=== PATIENT | female | born 1980 | race Caucasian/White ===

== ENCOUNTER 2016-12-07 12:02 | Emergency (ER) | payer SELFPAY ==
[~2016-12-07] VITALS: Ht 160 cm; Wt 82.4 kg
[~2016-12-07 12:02] MED LIST: ALBU2.5I INH; METF500 PO; METR500I3 PO; NAPR500 PO
[2016-12-07 12:21] VITALS: BP 131/78; PULSE 98; RESP 16; TEMP 98.1; O2SAT 99
[2016-12-07 12:31] LABS: BLOOD, URINE LARGE (NEG); KETONE, URINE 15 mg/dL (NEG); NITRITE,URINE NEG (NEG); PH, URINE 5.5 (5.0-8.5)
[2016-12-07 12:36] LABS: GLUCOSE,URINE 1000 OR GREATER mg/dL (NEG)
[2016-12-07 12:37] LABS: METHOD OF COLLECTION CLEAN CATCH; URINE COLOR YELLOW (YELLW/STRAW)
[2016-12-07 12:39] LABS: RBC, URINE INNUM /hpf (0-3); SQUAMOUS EPITHELIAL CELL URINE > 8 /hpf (0-5)
[2016-12-07 12:40] LABS: COMMENT (UR) CULTURE INDICATED; CULTURE IF INDICATED CULTURE INDICATED
--- NOTE | 2016-12-07 12:44 | PD ---
HPI Chief Complaint: Complaint Time Seen by Provider: 12:27 Travel History International Travel<30 days: No Contact w/Intl Traveler<30days: No Traveled to known affect area: No History of Present Illness HPI This is a 36 year old female who presents to the emergency department with 2 days of yellow vaginal discharge, constant, moderate severity, with no associated itching or urinary urgency or frequency. she says this feels similar to when she has had a yeast infection in the past. Pt. denies any fevers or chills. She denies any abdominal pain. Pt. is sexually active with one partner. PFSH Past Medical History Narrative Medical t2dm Asthma: Yes Anxiety: Yes Depression: Yes Cancer: No Cardiovascular Problems: No Diabetes: Yes Patient Takes Glucophage: No Diminished Hearing: No Endocrine: No Genitourinary: No Immune Disorder: No Musculoskeletal: Yes (BACK INJURY L4,L5,S1 FROM SLIP AND FALL) Neurologic: Yes Psychiatric: Yes Reproductive: No Respiratory: Yes Integumentary: Yes (HX MRSA, DISHYDROTIC ECZEMA) Immunizations Current: Yes Tetanus Vaccination: < 5 Years Influenza Vaccination: No ?: Not LMP: today : 1 Para: 0 Miscarriage: 1 Past Surgical History Body Medical Devices: HX OF MRSA Oral Surgery: Yes (1992) Social History Alcohol Use: Yes (OCCASIONAL -wine) Tobacco Use: Yes (07/26) Substance Use: Yes (COCAINE, MARIJUANA) Allergies-Medications (Allergen,Severity, Reaction): Coded Allergies: Penicillin (Verified Allergy, Severe, HIVES, 12/07/16) Zofran (Verified Adverse Reaction, Intermediate, nv, 12/07/16) Reported Meds & Prescriptions Reported Meds & Active Scripts Active Metronidazole 500 Mg Tab 500 Mg PO BID 7 Days Naprosyn (Naproxen) 500 Mg Tab 500 Mg PO BID PRN Glucophage 500 mg (Metformin HCl) 500 Mg Tab 500 Mg PO DAILY 30 Days Reported Resp: Albuterol 2.5 Mg/3 Ml Neb (Albuterol Sulfate) 2.5 Mg/3 Ml Nebu 2.5 Mg INH Q6H PRN Review of Systems Except as stated in HPI: all other systems reviewed are Neg Physical Exam Narrative GENERAL:Well appearing, no acute distress SKIN: Focused skin assessment warm and dry. HEAD: Atraumatic. Normocephalic. EYES: Pupils equal and round. No injection or drainage. ENT: Moist mucous membranes NECK: Trachea midline. CARDIOVASCULAR: Regular rate and rhythm. No murmur appreciated. RESPIRATORY: Clear to auscultation. Breath sounds equal bilaterally. GASTROINTESTINAL: Abdomen soft, non-tender, nondistended. MUSCULOSKELETAL: No obvious deformities. NEUROLOGICAL: Awake and alert. No obvious cranial nerve deficits. Moving all extremities. PSYCHIATRIC: Appropriate mood and affect; insight and judgment normal. Data Data Last Documented VS Vital Signs Date Time Temp Pulse Resp B/P Pulse Ox O2 Delivery O2 Flow Rate FiO2 12/07/16 12:21 98.1 98 16 131/78 99 Orders Urinalysis - C+S If Indicated (12/07/16 12:16) Ed Urine Pregnancytest Poc (12/07/16 12:16) Urine Culture (12/07/16 12:25) Wet Prep Profile (12/07/16 12:50) Gc And Chlamydia Pcr (12/07/16 12:50) Labs Laboratory Tests Test 12/07/16 12:25 Urine Collection Type CLEAN CATCH Urine Color YELLOW Urine Turbidity MOD Urine pH 5.5 Urine Specific [place] 1.025 Urine Protein 100 mg/dL Urine Glucose (UA) 1000 OR GREATER mg/dL Urine Ketones 15 mg/dL Urine Occult Blood LARGE Urine Nitrite NEG Urine Bilirubin NEG Urine Leukocyte Esterase SMALL Urine RBC INNUM /hpf Urine WBC 25-49 /hpf Urine Squamous Epithelial > 8 /hpf Cells Urine Trichomonas MOD Microscopic Urinalysis Comment CULTURE INDICATED Urine Collection Time 12:25 [facility] Medical Decision Making Medical Screen Exam Complete: Yes Emergency Medical Condition: Yes Interpretation(s) Afebrile, in mild tachycardia, normotensive Urinalysis: Large amount of red blood cells, Trichomonas is present Differential Diagnosis Cervicitis, urinary tract infection, yeast infection Narrative Course This is a 36-year-old female who presents to the emergency department with yellow vaginal discharge with no associated abdominal pain or fevers. Patient has a history of trichomonas in the past. Urinalysis demonstrates Trichomonas today. I think she is probably passing it back and forth with her partner. She has no signs of PID. She didn't really want a pelvic exam and I don't think it'll change our management. Patient was given empiric treatment for cervicitis and referral to gynecology as an outpatient. Diagnosis Primary Impression: Trichomonas vaginalis (TV) infection Patient Instructions: General Instructions Additional Instructions: If you develop fever, chills, severe abdominal pain, persistent vomiting or inability to eat return to the emergency department. Your pelvic exam today did not include a Pap smear. It is important to followup with a hoist operator on a yearly basis to be tested for cervical cancer as we do not do that from the emergency department. If there is a concern that you have sexually transmitted disease, your partner should be tested. You should followup with your hoist operator or with the health department to get tested for other sexually transmitted diseases like HIV and syphilis, as we do not test for these in the emergency department Med/Other Pt SpecificInfo: No Change to Meds Disposition: 01 DISCHARGE HOME Condition: Stable Hyacinth Pennington MD December 07, 2016 12:44
[2016-12-07] MEDS ORDERED: metroNIDAZOLE 500 MG TAB PO ONE (13:15)
[2016-12-07] MEDS ORDERED: LIDOCAINE HCL 1% 50 ML VIAL IM ONE (13:15)
[2016-12-07] MEDS ORDERED: cefTRIAXone 250 MG VIAL IM ONE (13:15)
[2016-12-07] MEDS ORDERED: AZITHROMYCIN PWD FOR SUSP 1 GM PACKET PO ONE (13:15)
== END 2016-12-07 14:02 | disposition home or self-care (01) ==
LOC: PHED 12:02
DX: A59.01 Trichomonal vulvovaginitis (principal); R00.0 Tachycardia, unspecified; F17.200 Nicotine dependence, unspecified, uncomplicated; J45.909 Unspecified asthma, uncomplicated; F41.9 Anxiety disorder, unspecified; F32.9 Major depressive disorder, single episode, unspecified; E11.9 Type 2 diabetes mellitus without complications; Z79.899 Other long term (current) drug therapy; Z88.0 Allergy status to penicillin
CPT/HCPCS: 81001; 84703; 87086; 96372; 99283; J0696

== ENCOUNTER 2017-01-20 23:21 | Emergency (ER) | payer SELFPAY ==
[~2017-01-20] VITALS: Ht 160 cm; Wt 84.6 kg
[2017-01-20 23:34] VITALS: BP 124/78; PULSE 110; RESP 22; TEMP 98.8; O2SAT 97
[2017-01-20] MEDS ORDERED: ALBU0.08 NEB (23:44)
[2017-01-20 23:45] VITALS: BP 122/76; PULSE 98; RESP 18; TEMP 98.8; O2SAT 97
--- NOTE | 2017-01-21 00:05 | PD ---
HPI Chief Complaint: Cold / Flu Symptoms Time Seen by Provider: 23:52 Travel History International Travel<30 days: No Contact w/Intl Traveler<30days: No Traveled to known affect area: No History of Present Illness HPI The patient is a 37-year-old female that complains of a cough with productive of slight green sputum, nasal congestion and rhinorrhea for 2 days. The patient also had a sore throat. She has occasional intermittent ear pain both ears as well. She denies any fever. She had some minimal myalgias and no headache. She denies nausea, vomiting or diarrhea. She denies any major medical problems and states there is no possibility of . PFSH Past Medical History Asthma: Yes Anxiety: Yes Depression: Yes Cancer: No Cardiovascular Problems: No Diabetes: Yes Diminished Hearing: No Endocrine: No Gastrointestinal Disorders: No Genitourinary: No Immune Disorder: No Implanted Vascular Access Dvce: No Musculoskeletal: Yes (BACK INJURY L4,L5,S1 FROM SLIP AND FALL) Neurologic: Yes Psychiatric: Yes Reproductive: No Respiratory: Yes Integumentary: Yes (HX MRSA, DISHYDROTIC ECZEMA) Immunizations Current: Yes Tetanus Vaccination: < 5 Years Influenza Vaccination: No ?: Not LMP: 01/09/17 : 1 Para: 0 Miscarriage: 1 Past Surgical History Body Medical Devices: HX OF MRSA Oral Surgery: Yes (1992) Social History Alcohol Use: Yes (OCCASIONAL -wine) Tobacco Use: Yes (07/26 ppd) Substance Use: Yes (COCAINE, MARIJUANA) Allergies-Medications (Allergen,Severity, Reaction): Coded Allergies: Penicillin (Verified Allergy, Severe, HIVES, 01/20/17) Zofran (Verified Adverse Reaction, Intermediate, nv, 01/20/17) Reported Meds & Prescriptions Reported Meds & Active Scripts Active Reported Albuterol Neb (Albuterol Sulfate) 2.5 Mg/3 Ml Neb 2.5 Mg NEB QID NEB Review of Systems Except as stated in HPI: all other systems reviewed are Neg Physical Exam Narrative GENERAL: Well-nourished, well-developed patient in no respiratory distress. Her vital signs show initially heart rate of 110 but repeat shows 98. Respirations are 22 and the rest of vital signs are normal. SKIN: Focused skin assessment warm/dry. No skin rash is present. HEAD: Normocephalic. No sinus tenderness is present. EYES: No scleral icterus. No injection or drainage. NECK: Supple, trachea midline. No JVD or lymphadenopathy. CARDIOVASCULAR: Regular rate and rhythm with borderline sinus tachycardia without murmurs, gallops, or rubs. RESPIRATORY: Breath sounds equal bilaterally. No accessory muscle use. Lungs clear to auscultation bilaterally. GASTROINTESTINAL: Abdomen soft, non-tender, nondistended. MUSCULOSKELETAL: No cyanosis, or edema. No guarding or rebound is present. BACK: Nontender without obvious deformity. No CVA tenderness. ENT: The tympanic membranes are clear and the canals are clear. The throat shows erythema without exudate or abscess. Data Data Last Documented VS Vital Signs Date Time Temp Pulse Resp B/P Pulse Ox O2 Delivery O2 Flow Rate FiO2 01/20/17 23:48 96 18 97 Room Air 01/20/17 23:45 98.8 122/76 Orders Group A Rapid Strep Screen (01/21/17 00:01) Strep Culture (Group A) (01/21/17 00:00) MDM Medical Decision Making Medical Screen Exam Complete: Yes Emergency Medical Condition: Yes Medical Record Reviewed: Yes Interpretation(s) The strep screen is negative for group A strep antigen. Differential Diagnosis Viral upper respiratory infection, strep pharyngitis, flu syndromeunlikely, ear infection, pneumonia, bronchiolitis Narrative Course The patient has a viral upper respiratory infection. She'll need to increase liquids, rest and is given a five-day work excuse. She should continue to take her [id number] medications that she is taking, TheraFlu and Motrin. Diagnosis Primary Impression: Viral upper respiratory infection Additional Instructions: As we discussed, increase liquid intake and continue to take the over-the- counter medications that she have been taking. This includes the TheraFlu and Motrin. Follow-up next week with your primary care physician. Disposition: DISCHARGE HOME Condition: Stable Rodolfo Winter MD Jan 21, 2017 00:05
[2017-01-21 00:56] VITALS: BP 122/72; PULSE 90; RESP 18; O2SAT 97
== END 2017-01-21 01:09 | disposition home or self-care (01) ==
LOC: PHED 23:21
DX: J06.9 Acute upper respiratory infection, unspecified (principal); J45.909 Unspecified asthma, uncomplicated; E11.9 Type 2 diabetes mellitus without complications
CPT/HCPCS: 87081; 87880; 99283

== ENCOUNTER 2017-09-03 22:30 | Emergency (ER) | payer SELFPAY ==
[~2017-09-03] VITALS: Ht 160 cm; Wt 78.0 kg
[~2017-09-03 22:30] MED LIST changes: +ALBU0.08 NEB; -ALBU2.5I INH; -METF500 PO; -METR500I3 PO; -NAPR500 PO
[2017-09-03 22:32] VITALS: BP 189/90; PULSE 107; RESP 20; TEMP 98.2; O2SAT 99
--- NOTE | 2017-09-03 23:27 | PD ---
HPI Chief Complaint: Respiratory Symptoms Time Seen by Provider: 23:25 Travel History International Travel<30 days: No Contact w/Intl Traveler<30days: No Traveled to known affect area: No History of Present Illness HPI 37-year-old female presents to the emergency department for complaint of 2 days of severe upper back pain with shortness of breath. No injury no fall no fever no chills no hemoptysis no nausea no vomiting no chest pain. No lower extremity pain or swelling. No history of clots. No family history of clotting disorder. Noted tobacco use without control pill use. No recent long distance travel protracted bed rest or surgical procedure. No family history of clotting disorder. Patient states that she placed her symptoms on the Internet to [employer] and multiple people told her to come to the emergency room separately she finally decided to come to the emergency room for evaluation. Patient is taking no medications for any of her symptoms. PFSH Past Medical History Narrative Medical Anxiety depression diabetes chronic back pain tobacco use alcohol use substance use including cocaine; nursing notes reviewed Asthma: Yes Anxiety: Yes Depression: Yes Cancer: No Cardiovascular Problems: No Diabetes: Yes Patient Takes Glucophage: No Diminished Hearing: No Endocrine: No Gastrointestinal Disorders: No Genitourinary: No Immune Disorder: No Implanted Vascular Access Dvce: No Musculoskeletal: Yes (BACK INJURY L4,L5,S1 FROM SLIP AND FALL) Neurologic: Yes Psychiatric: Yes Reproductive: No Respiratory: Yes Integumentary: Yes (HX MRSA, DISHYDROTIC ECZEMA) Immunizations Current: Yes Influenza Vaccination: No ?: Unknown LMP: 08/29/17 : 1 Para: 0 Miscarriage: 1 Past Surgical History Body Medical Devices: HX OF MRSA Oral Surgery: Yes (1992) Social History Alcohol Use: Yes (OCCASIONAL -wine) Tobacco Use: Yes (07/26 ppd) Substance Use: Yes (COCAINE, MARIJUANA) Allergies-Medications (Allergen,Severity, Reaction): Coded Allergies: penicillin G (Unverified Allergy, Severe, HIVES, 09/03/17) ondansetron (Unverified Adverse Reaction, Intermediate, nv, 09/03/17) Reported Meds & Prescriptions Reported Meds & Active Scripts Active Robaxin (Methocarbamol) 750 Mg Tab 750 Mg PO Q6 Reported Albuterol Neb (Albuterol Sulfate) 2.5 Mg/3 Ml Neb 2.5 Mg NEB QID NEB Review of Systems Except as stated in HPI: all other systems reviewed are Neg Physical Exam Narrative GENERAL: Well-developed well-nourished female crying in no respiratory distress SKIN: Warm and dry. HEAD: Normocephalic. EYES: No scleral icterus. No injection or drainage. NECK: Supple, trachea midline. No JVD or lymphadenopathy. CARDIOVASCULAR: Regular rate and rhythm without murmurs, gallops, or rubs. RESPIRATORY: Breath sounds equal bilaterally. No accessory muscle use. GASTROINTESTINAL: Abdomen soft, non-tender, nondistended. MUSCULOSKELETAL: No cyanosis, or edema. BACK: Nontender without obvious deformity. No CVA tenderness. Data Data Last Documented VS Vital Signs Date Time Temp Pulse Resp B/P (MAP) Pulse Ox O2 Delivery O2 Flow Rate FiO2 09/04/17 03:06 09/04/17 03:05 98 Room Air 09/04/17 03:05 76 18 09/03/17 22:32 98.2 Orders Orders Complete Blood Count With Diff (09/03/17 23:25) Basic Metabolic Panel (Bmp) (09/03/17 23:25) D-Dimer (09/03/17 23:25) Troponin I (09/03/17 23:25) Iv Access Insert/Monitor (09/03/17 23:25) Electrocardiogram (09/03/17 23:25) Ecg Monitoring (09/03/17 23:25) Oximetry (09/03/17 23:25) Oxygen Administration (09/03/17 23:25) Chest, Single Ap (09/03/17 23:25) Sodium Chloride 0.9% Flush (Ns Flush) (09/03/17 23:30) Ketorolac Inj (Toradol Inj) (09/03/17 23:30) Orphenadrine Inj (Norflex Inj) (09/04/17 01:15) Ed Discharge Order (09/04/17 02:40) Labs Laboratory Tests Test 09/03/17 23:30 White Blood Count 11.7 TH/MM3 Red Blood Count 5.01 MIL/MM3 Hemoglobin 15.5 GM/DL Hematocrit 43.7 % Mean Corpuscular Volume 87.2 FL Mean Corpuscular Hemoglobin 30.8 PG Mean Corpuscular Hemoglobin Concent 35.4 % Red Cell Distribution Width 13.7 % Platelet Count 284 TH/MM3 Mean Platelet Volume 8.1 FL Neutrophils (%) (Auto) 49.3 % Lymphocytes (%) (Auto) 42.7 % Monocytes (%) (Auto) 4.8 % Eosinophils (%) (Auto) 2.1 % Basophils (%) (Auto) 1.1 % Neutrophils # (Auto) 5.8 TH/MM3 Lymphocytes # (Auto) 5.0 TH/MM3 Monocytes # (Auto) 0.6 TH/MM3 Eosinophils # (Auto) 0.3 TH/MM3 Basophils # (Auto) 0.1 TH/MM3 CBC Comment DIFF FINAL Differential Comment D-Dimer Quantitative (PE/DVT) 0.45 MG/L FEU Blood Urea Nitrogen 13 MG/DL Creatinine 0.66 MG/DL Random Glucose 242 MG/DL Calcium Level 9.2 MG/DL Sodium Level 134 MEQ/L Potassium Level 3.8 MEQ/L Chloride Level 100 MEQ/L Carbon Dioxide Level 25.7 MEQ/L Anion Gap 8 MEQ/L Estimat Glomerular Filtration Rate 101 ML/MIN Troponin I LESS THAN 0.02 NG/ML MDM Medical Decision Making Medical Screen Exam Complete: Yes Emergency Medical Condition: Yes Medical Record Reviewed: Yes Interpretation(s) EKG normal sinus rhythm rate [address] elevation injury pattern or ectopy noted Troponin I: Less than 0.02, not elevated D-dimer 0.45, not elevated Last Impressions Chest X-Ray 09/03/17 [id number] Signed Impressions: Service Date/Time: Sunday, September 03, 2017 23:53 - CONCLUSION: 1. Mild basilar atelectasis. No effusion or pneumothorax. Martin Parikh MD CBC & BMP Diagram 09/03/17 23:30 Calcium Level 9.2 Differential Diagnosis Dyspnea, exacerbation asthma, pneumothorax, PE, musculoskeletal pain, atypical chest pain Narrative Course Patient placed on online activist IV access obtained continuous pulse oximetry EKG reveals no acute abnormality Patient administered Toradol and Norflex Chest x-ray no acute abnormality Lab values found to be in normal range d-dimer 0.45 troponin I less than 0.02 Patient clinically improved and stable for outpatient management Diagnosis Primary Impression: Musculoskeletal back pain Referrals: Primary Care Physician call for appointment Patient Instructions: General Instructions Med/Other Pt SpecificInfo: Prescription(s) given Scripts Methocarbamol (Robaxin) 750 Mg Tab 750 MG PO Q6 for Muscle Spasm, #12 TAB 0 Refills Prov: Yocasta Singh MD 09/04/17 Disposition: 01 DISCHARGE HOME Condition: Stable Yocasta Singh MD Sep 03, 2017 23:27
[2017-09-03] MEDS ORDERED: KETOROLAC TROMETHAMINE 30 MG/ML (IVP) VIAL IV PUSH ONE (23:30)
[2017-09-03] MEDS ORDERED: SODIUM CHLORIDE 0.9% FLUSH 10 ML FLUSH IVF PRN (23:30)
[2017-09-04 00:11] LABS: AUTOMATED NEUTROPHIL # 5.8 TH/MM3 (1.8-7.7); BASOPHIL # 0.1 TH/MM3 (0-0.2); BASOPHIL % 1.1 % (0.0-2.0); EOSINOPHIL # 0.3 TH/MM3 (0-0.4); EOSINOPHIL % 2.1 % (0.0-4.0); HEMATOCRIT 43.7 % (35.0-46.0); HEMOGLOBIN 15.5 GM/DL (11.6-15.3); LYMPH % 42.7 % (9.0-44.0); MEAN CELL VOLUME 87.2 FL (80.0-100.0); MEAN CORPUSCULAR HEMOGLOBIN 30.8 PG (27.0-34.0); MEAN CORPUSCULAR HGB CONC 35.4 % (32.0-36.0); MEAN PLATELET VOLUME 8.1 FL (7.0-11.0); MONO % 4.8 % (0.0-8.0); MONOCYTE # 0.6 TH/MM3 (0-0.9); NEUT % 49.3 % (16.0-70.0); PLATELET COUNT 284 TH/MM3 (150-450); RED BLOOD COUNT 5.01 MIL/MM3 (4.00-5.30); RED CELL DISTRIBUTION WIDTH 13.7 % (11.6-17.2); WHITE BLOOD COUNT 11.7 TH/MM3 (4.0-11.0)
--- NOTE | 2017-09-04 00:19 | RADRPT ---
EXAM DATE/TIME: 09/03/2017 23:53 [facility] COMPARISON: CHEST SINGLE AP, September 07, 2015, 19:48. INDICATIONS : Short of breath. MEDICAL HISTORY : None. SURGICAL HISTORY : None. ENCOUNTER: Initial ACUITY: 1 day PAIN SCORE: 6/10 LOCATION: Bilateral chest FINDINGS: A single view of the chest demonstrates the lungs to be symmetrically aerated without evidence of mas s, infiltrate or effusion. The cardiomediastinal contours are unremarkable. Osseous structures are intact. CONCLUSION: 1. Mild basilar atelectasis. No effusion or pneumothorax. Martin Parikh MD on September 04, 2017 at 0:16 Board Certified Radiologist. This report was verified electronically.
[2017-09-04 00:39] LABS: TROPONIN I LESS THAN 0.02 NG/ML (0.02-0.05)
[2017-09-04 00:41] LABS: BICARBONATE 25.7 MEQ/L (21.0-32.0); BLOOD UREA NITROGEN 13 MG/DL (7-18); CALCIUM 9.2 MG/DL (8.5-10.1); CHLORIDE 100 MEQ/L (98-107); CREATININE 0.66 MG/DL (0.50-1.00); GLOMERULAR FILTRATION RATE 101 ML/MIN (>89); GLUCOSE,RANDOM 242 MG/DL (74-106); SODIUM (NA) 134 MEQ/L (136-145)
[2017-09-04] MEDS ORDERED: ORPHENADRINE INJ 60 MG/2 ML AMP IM ONE (01:15)
[2017-09-04] MEDS ORDERED: ROBA750T PO (02:47)
[2017-09-04 03:05] VITALS: BP 120/87; PULSE 76; RESP 18; O2SAT 100
--- NOTE | 2017-09-04 16:59 | EKG ---
Date Performed: 09/04/2017 Time Performed: 00:54:33 PTAGE: 37 years EKG: Sinus rhythm NORMAL ECG PREVIOUS TRACING : 06/30/2014 00.34 Compared to prior tracing, leads that are recorded so no si gnificant change, previous is missing 2 leads DOCTOR: Inderjit Arroyo Interpretating Date/Time 09/04/2017 16:57:28
== END 2017-09-04 03:07 | disposition home or self-care (01) ==
LOC: NEPC 22:30
DX: M54.9 Dorsalgia, unspecified (principal); R06.02 Shortness of breath; E11.9 Type 2 diabetes mellitus without complications; G89.29 Other chronic pain; Z72.0 Tobacco use
CPT/HCPCS: 71045; 80048; 84484; 85025; 85379; 93005; 96372; 96374; 99284; J1885; J2360